=== PATIENT | male | born 2000 | race Caucasian/White ===

== ENCOUNTER 2018-03-16 12:52 | Emergency (ER) | payer BC ==
[~2018-03-16] VITALS: Ht 185.4 cm; Wt 62.9 kg
[2018-03-16 12:57] VITALS: TEMP 36.6; Ht 185.4 cm; Wt 62.9 kg
[2018-03-16] MEDS ORDERED: OXYMETAZOLINE HCL 0.05% NA SPR 15 ML BTL NAE ONE (13:15)
--- NOTE | 2018-03-16 14:35 | DIAGNOSTIC IMAGING REPORT ---
NASAL BONES MIN 3 VIEWS CLINICAL HISTORY: 17 years-old Male presenting with injury to nose, frequent nose bleeds, eval fx. TECHNIQUE: 3 views of the nasal bones were obtained. COMPARISON: None. FINDINGS: No displaced nasal bone fracture. Nasofrontal sutures without diastases. Vomer grossly intact. Paranasal sinuses clear. Bony orbits intact. Bony nasal septum midline. IMPRESSION: No radiographic evidence of acute osseous injury of the nasal bones. Electronically signed by: Ilir Boggs M.D. 03/16/2018 2:34 PM Dictated Date/Time: 03/16/2018 2:32 PM
--- NOTE | 2018-03-16 14:46 | EMERGENCY ROOM VISIT NOTE ---
ED Visit Note First contact with patient: 12:58 CHIEF COMPLAINT: Nosebleed HISTORY OF PRESENT ILLNESS: This 17-year-old male patient presents to the emergency department with complaint of frequent nosebleeds for the past 3 days. Patient states that he has had nosebleeds 2-3 times a day for the past 3 days , lasting anywhere from 10-20 minutes. He states that he had a nosebleed just prior to arrival that lasted approximately 20 minutes and stopped after holding pressure about 15 minutes ago. Patient states that he hit himself in the nose with his knee approximately 3 weeks ago, he did get evaluated at [facility] and was told that everything looked fine. He does have a follow -up appointment with an ENT surgeon in 4 days. Patient denies any headaches, vision changes, nausea or vomiting, dizziness or syncope, chest pain, shortness of breath, weakness or fatigue. He denies any unusual bleeding from the gums, abnormal bruising, blood in the stool or urine. He denies any family history of bleeding disorders. He does state that he started getting cold symptoms a few days ago and has been blowing his nose a lot, that is when the nosebleeds started. He states that every time his nose has started to bleed, he had been blowing his nose. He does not take any blood thinners. REVIEW OF SYSTEMS: A complete 10 point review of systems was reviewed with the patient with pertinent positives and negatives as per history of present illness. All else were negative. PMH: The patient is healthy; there is no significant medical or surgical history. SOCIAL HISTORY: Patient lives at home. PHYSICAL EXAM: Vital Signs: Reviewed Nurse's notes. General appearance: The patient is sitting upright holding the nose and is somewhat agitated. The patient is alert, oriented, coherent, and cooperative. There is no tachypnea or dyspnea. Exam of the nostrils reveals patent nares with no septal deviation or septal hematoma. There is a small amount of dried blood in the left naris. There is no obvious origin for the nosebleed. There is no blood in the posterior pharynx noted. There is no swelling, ecchymosis, or tenderness to palpation of the nasal bridge. The lungs were clear to auscultation, and the heart sounds regular and of normal quality. IMAGING: NASAL BONES MIN 3 VIEWS CLINICAL HISTORY: 17 years-old Male presenting with injury to nose, frequent nose bleeds, eval fx. TECHNIQUE: 3 views of the nasal bones were obtained. COMPARISON: None. FINDINGS: No displaced nasal bone fracture. Nasofrontal sutures without diastases. Vomer grossly intact. Paranasal sinuses clear. Bony orbits intact. Bony nasal septum midline. IMPRESSION: No radiographic evidence of acute osseous injury of the nasal bones. EMERGENCY DEPARTMENT COURSE: I examined the patient. Differential diagnosis includes epistaxis, nasal contusion, septal hematoma, nasal bone fracture, among others. There is no active bleeding in the nares bilaterally, with a small amount of dried blood concentrated in the left nares. There is no swelling or ecchymosis over the nasal bridge. There is no septal deviation or septal hematoma on exam. The bilateral nares are patent. Patient and mother are requesting an x-ray of the nasal bones to evaluate for fracture. I did explain to the patient that given his exam, this would most likely not change his treatment, but he did still request the x-ray, which was ordered and done. There is no evidence of nasal bone fracture on x-ray. Patient was provided with a disc of his x-ray to take with him to his ENT appointment. The patient has not had any further nose bleeding while in the department. Patient was provided with Afrin nasal spray and a nose clamp, and was educated regarding the management of future nosebleeds, he verbalized understanding. Patient was also encouraged to keep his ENT appointment, was given strict return precautions should his symptoms worsen, he verbalized understanding. Patient was discharged home with his mother in stable condition and ambulatory. Current/Historical Medications No Active Prescriptions or Reported Meds Allergies Uncoded Allergies: PEPPERS (Allergy, Severe, ITCHING, 03/16/18) Vital Signs Date Time Temp Pulse Resp B/P (MAP) Pulse Ox O2 Delivery O2 Flow Rate FiO2 03/16/18 15:10 58 12 103/62 97 03/16/18 12:57 36.6 73 18 116/72 97 Room Air Medications Administered Medications (Trade) Dose Ordered Sig/Derek Route Start Time Stop Time Status Last Admin Dose Admin Oxymetazoline HCl (Afrin 0.05% Nasal [place]) 2 sprays NOW ONCE KACI 03/16/18 13:15 03/16/18 13:16 DC 03/16/18 13:30 2 SPRAYS Departure Information Impression Primary Impression: Epistaxis Dispostion Home / Self-Care Condition GOOD Prescriptions No Active Prescriptions or Reported Meds Referrals No Doctor, Assigned (PCP) Patient Instructions ED N[facility], [facility] Additional Instructions You have been treated in the Emergency Department today for your Nose Bleed ( Epistaxis). Do NOT blow your nose for the next few days. This can result in recurrence of your nosebleed. If bleeding does recur, apply immediate direct pressure to your nose or use the provided clamps. Set the timer for 20 MINUTES and do not remove pressure for that full 20 minutes. If you are unable to get the bleeding to stop after a full 20 minutes of holding pressure, you should return to the emergency department for evaluation. You should consider using a humidifier in your room next to your bed to help moisten the air and decrease instances of nosebleeds. You can use [id number] saline nasal sprays to help moisten the nasal mucosa and decrease instances of nosebleeds. As with any trip to the Emergency Department, you should follow-up with your Primary Care Provider from today's visit. Return to the emergency department if your symptoms persist despite treatment plan outlined above or if the following symptoms occur: uncontrollable nosebleed , dizziness, lightheadedness, passing out, severe headache, chest pain, shortness breath, or any other concerns.
[2018-03-16 15:10] VITALS: BP 103/62; PULSE 58; O2SAT 97
== END 2018-03-16 14:10 | disposition home or self-care (01) ==
LOC: C.EDB 12:55 → C.EDD 14:10
DX: R04.0 Epistaxis (principal)